=== PATIENT | female | born 1985 | race Two or more races ===

== ENCOUNTER 2020-08-18 16:10 | Inpatient (IN) | payer OTHER ==
[~2020-08-18] VITALS: Ht 167.6 cm; Wt 88.9 kg
== END 2020-08-21 10:57 | disposition home or self-care (01) | DRG 788 ==
LOC: LDR 16:10 → OB/GYN 16:10 → O/R 08-19 07:04 → OB/GYN 08-19 10:05
PROVIDERS: ADMIT Obstetrics & Gynecology; ATTEND Obstetrics & Gynecology
PROC: 4A1HXFZ Monitoring of Products of Conception, Cardiac Rhythm, External Approach (ICD-10-PCS; 2020-08-18)
PROC: 10D00Z1 Extraction of Products of Conception, Low, Open Approach (ICD-10-PCS; principal; 2020-08-18 20:04)
DX: O65.5 Obstructed labor due to abnormality of maternal pelvic organs (principal); O34.211 Maternal care for low transverse scar from previous cesarean delivery; Z3A.38 38 weeks gestation of pregnancy; Z37.0 Single live birth